=== PATIENT | male | born 1960 | race Caucasian/White ===

== ENCOUNTER 2017-08-27 16:54 | Emergency (ER) | payer OTHER ==
--- NOTE | 2017-08-27 17:10 | EDM.PDOC ---
ED HPI GENERAL MEDICAL PROBLEM - General Chief Complaint: Upper Extremity Injury/Pain Stated Complaint: FALL/PAIN RT SHOULDER Time Seen by Provider: 08/27/17 16:58 Source of Information: Reports: Patient History Limitations: Reports: No Limitations - History of Present Illness INITIAL COMMENTS - FREE TEXT/NARRATIVE: HISTORY AND PHYSICAL: History of present illness: Patient is a 57-year-old male who presents to the emergency room with complaints of right shoulder pain and thoracic back pain after a fall on Thursday. He states he slipped on ice and stretched out his right arm to grab onto the truck to prevent his fall, landing on his right arm. He denies hitting his head or any loss of consciousness. He does have full range of motion to the affected extremity, although has pain when reaching his arm behind his back to the anterior right shoulder. He numbness or tingling to the affected extremity. Does have a small abrasion to his right forearm. Review of systems: As per history of present illness and below otherwise all systems reviewed and negative. Past medical history: As per history of present illness and as reviewed below otherwise noncontributory. Surgical history: As per history of present illness and as reviewed below otherwise noncontributory. Social history: No reported history of drug or alcohol abuse. Family history: As per history of present illness and as reviewed below otherwise noncontributory. Physical exam: Gen.: Well-developed and well-nourished 57-year-old male. Alert and oriented. Nontoxic appearing and in no acute distress. HEENT: Atraumatic, normocephalic, pupils reactive, negative for conjunctival pallor or scleral icterus, mucous membranes moist, throat clear, neck supple, nontender, trachea midline. Lungs: Clear to auscultation, breath sounds equal bilaterally, chest nontender. Heart: S1S2, regular rate and rhythm Abdomen: Soft, nondistended, nontender. Negative for masses or hepatosplenomegaly. Negative for costovertebral tenderness. Pelvis: Stable nontender. Genitourinary: Deferred. Rectal: Deferred. C-Spine/Back: No pinpoint vertebral tenderness upon palpation. No crepitus, step -offs or obvious deformities noted. Does have some muscular tenderness to the mid thoracic back area. Fully ambulatory, able to walk on heels and toes without difficulty. No urinary or fecal incontinence. Extremities: Full extension (frontal and lateral) range of motion without difficulty or deficits. Has pain to the anterior deltoid when reaching his arm back to reach his thoracic spine. When performing the Apprehension test, he has pain to anterior shoulder. No clavicle or scapular area tenderness with palpation. He is negative for cords or calf pain. Neurovascular unremarkable. Skin: Small healing abrasion noted to right forearm. Otherwise skin is intact, warm, dry. No lesions, rashes or masses noted. Neuro: Awake, alert, oriented. Cranial nerves II through XII unremarkable. Cerebellum unremarkable. Motor and sensory unremarkable throughout. Exam nonfocal. X-ray shows no fracture or dislocation. While performing physical assessment patient has pain to the anterior portion of his shoulder girdle. X-ray shows no fractures or dislocations although cannot rule out a labral tear or tendon injury. Educated patient on these findings and encouraged him to follow up with the orthopedic provider if he continues to have discomfort. Patient has some supraspinatus discomfort on the left at the thoracic area which appears to be musculature in nature will treat with Flexeril area and he shouldn't education was done on follow-up care. We'll give him a sling. Patient voices understanding and is agreeable to plan of care. He denies any questions at this time. Diagnostics: X-ray Therapeutics: Toradol, Sling Impression: Right shoulder injury Plan: 1. X-ray shows no fractures or dislocations. We are not able to rule out an ligament or tendon injury at this time. If you continue to have pain in the next week, please follow-up with the orthopedic provider for further evaluation. 2. Rest, ice, elevate the extremity. Please use the sling for comfort. 3. Tylenol and/or ibuprofen as needed for pain management. Cataflam is an anti- inflammatory. If you take this medication please do not take any additional NSAID such as ibuprofen or Aleve. May use Flexeril as directed, muscle relaxor. This medication may cause drowsiness so do not take it will driving your needing to be functioning at work. (Cataflam and Flexeril are safe to take together). 4. As we discussed, please follow-up with the orthopedic provider, the phone number has been provided for you. Return to the ED as needed and as discussed. Definitive disposition and diagnosis as appropriate pending reevaluation and review of above. Onset Date: 08/24/17 Duration: Day(s): Location: Reports: Upper Extremity, Right shoulder Pain Score (Numeric/FACES): 6 - Related Data Allergies Allergy/AdvReac Type Severity Reaction Status Date / Time No Known Allergies Allergy Verified 08/27/17 17:19 Home Meds: Home Meds . [No Known Home Meds] 01/30/15 [History] Past Medical History - Past Surgical History Other Musculoskeletal Surgeries/Procedures:: neck fusion Social & Family History - Tobacco Use Smoking Status *Q: Never Smoker Second Hand Smoke Exposure: No - Recreational Drug Use Recreational Drug Use: No Review of Systems - Review of Systems Review Of Systems: ROS reveals no pertinent complaints other than HPI. ED EXAM, GENERAL - Physical Exam Exam: See Below (See dictation) Course - Vital Signs Last Recorded V/S: Last Vital Signs Temp 98.2 F 08/27/17 17:05 Pulse 68 08/27/17 17:05 Resp 18 08/27/17 17:05 BP 144/78 H 08/27/17 17:05 Pulse Ox 96 08/27/17 17:05 - Orders/Labs/Meds Orders: Active Orders 24 hr Category Date Time Status Shoulder Comp Rt [CR] Stat Exams 08/27/17 17:15 Taken Thoracic Spine 3V [CR] Stat Exams 08/27/17 17:15 Taken Meds: Medications Discontinued Medications Generic Name Dose Route Start Last Admin Trade Name Freq PRN Reason Stop Dose Admin Ketorolac Tromethamine 60 mg 08/27/17 17:15 08/27/17 17:25 Toradol IM 08/27/17 17:16 60 mg ONETIME ONE Administration Departure - Departure Time of Disposition: 18:47 Disposition: Home, Self-Care 01 Clinical Impression: Right shoulder injury Qualifiers: Encounter type: initial encounter Qualified Code(s): S49.91XA - Unspecified injury of right shoulder and upper arm, initial encounter - Discharge Information Referrals: PCP,None [Primary Care Provider] - Forms: ED Department Discharge Additional Instructions: My general discharge The following information is given to patients seen in the emergency department who are being discharged to home. This information is to outline your options for follow-up care. We provide all patients seen in our emergency department with a follow-up referral. The need for follow-up, as well as the timing and circumstances, are variable depending upon the specifics of your emergency department visit. If you don't have a primary care physician on staff, we will provide you with a referral. We always advise you to contact your personal physician following an emergency department visit to inform them of the circumstance of the visit and for follow-up with them and/or the need for any referrals to a consulting specialist. The emergency department will also refer you to a specialist when appropriate. This referral assures that you have the opportunity for follow-up care with a specialist. All of these measure are taken in an effort to provide you with optimal care, which includes your follow-up. Under all circumstances we always encourage you to contact your private physician who remains a resource for coordinating your care. When calling for follow-up care, please make the office aware that this follow-up is from your recent emergency room visit. If for any reason you are refused follow-up, please contact the [facility] Emergency Department at and asked to speak to the emergency department charge nurse. [facility] Special[facility] - Orthopedic [facility] Professional [address], [address] [place] [address] 1. X-ray shows no fractures or dislocations. We are not able to rule out an ligament or tendon injury at this time. If you continue to have pain in the next week, please follow-up with the orthopedic provider for further evaluation. 2. Rest, ice, elevate the extremity. Please use the sling for comfort. 3. Tylenol and/or ibuprofen as needed for pain management. Cataflam is an anti- inflammatory. If you take this medication please do not take any additional NSAID such as ibuprofen or Aleve. May use Flexeril as directed, muscle relaxor. This medication may cause drowsiness so do not take it will driving your needing to be functioning at work. (Cataflam and Flexeril are safe to take together). 4. As we discussed, please follow-up with the orthopedic provider, the phone number has been provided for you. Return to the ED as needed and as discussed. - My Orders Last 24 Hours: My Active Orders 08/27/17 17:15 Shoulder Comp Rt [CR] Stat Thoracic Spine 3V [CR] Stat - Assessment/Plan Last 24 Hours: My Active Orders 08/27/17 17:15 Shoulder Comp Rt [CR] Stat Thoracic Spine 3V [CR] Stat
[2017-08-27] MEDS ORDERED: Ketorolac 60 MG/2 ML SDV IM ONE (17:15)
[2017-08-27 19:02] VITALS: BP 127/80
--- NOTE | 2017-08-28 10:00 | CR ---
EXAM DATE: 08/27/17 PATIENT'S AGE: 57 Patient: ZAKIA QUIJANO Facility: [place], [place] Site . Site : 1960 Study: XRay Spine Thoracic [id number]/15/2018 5:57:29 PM Ordering Physician: Doctor Carter Final Report: INDICATION: fall TECHNIQUE: Thoracic spine 3 view COMPARISON: None FINDINGS: Bones: Postsurgical changes lower cervical spine. Age-indeterminate compression deformity of a mid thoracic vertebral body. No significant bone lesions. Joints: Degenerative changes with rightward curvature of the lower lumbar spine. Soft tissues: Unremarkable. IMPRESSION: Age-indeterminate compression deformity of a mid thoracic vertebral body. Please correlate with point tenderness, any prior imaging of this region and any prior imaging of this region. Dictated by Tre Smith MD @ 08/27/2017 6:36:41 PM Dictated by: Tre Smith MD @ 08/27/2017 18:38:12 (Electronic Signature) Report Signed by Proxy. [facility]
--- NOTE | 2017-08-28 10:01 | CR ---
EXAM DATE: 08/27/17 PATIENT'S AGE: 57 Patient: ZAKIA QUIJANO Facility: [place], [place] Site . Site : 1960 Study: XRay Shoulder Right [id number]/15/2018 5:57:51 PM Ordering Physician: Doctor Carter Final Report: TECHNIQUE: Three views of the right shoulder. Suboptimal axillary view COMPARISON: None FINDINGS: Bones: No fractures or bone lesions. Joint spaces: Unremarkable. Soft tissues: Unremarkable. IMPRESSION: No evidence of acute bony abnormality. Dictated by Tre Smith MD @ 08/27/2017 6:38:58 PM Dictated by: Tre Smith MD @ 08/27/2017 18:39:10 (Electronic Signature) Report Signed by Proxy. [facility]
== END 2017-08-27 18:58 | disposition home or self-care (01) ==
LOC: MW.ED 16:54
DX: S49.91XA Unspecified injury of right shoulder and upper arm, initial encounter (principal); W00.0XXA Fall on same level due to ice and snow, initial encounter
CPT/HCPCS: 72072; 73030; 96372; 99283; A4566; J1885; 99284